=== PATIENT | male | born 1965 | race Caucasian/White ===

== ENCOUNTER 2021-10-05 22:41 | Inpatient (IN) | payer OTHER ==
[2021-10-05] MEDS ORDERED: morphine CARPU-JECT 4 MG/1 ML DISP.SYRIN IVPUSH ONE (23:22)
[2021-10-05] MEDS ORDERED: morphine SULFATE 4 MG/ML VIAL ONE (23:31)
[2021-10-05 23:42] LABS: BASO % 0.8 % (0-2.0); EOS % 2.5 % (0-4.5); HEMATOCRIT 37.7 % (35.4-49); HEMOGLOBIN 13.3 GM/dL (11.7-16.9); LYMPH % 20.5 % (8-40); MCH 35.3 pg (25.7-33.7); MCHC 35.1 g/dl (32.0-35.9); MEAN CELL VOLUME 100.5 fl (80-96); MONO % 7.8 % (3.8-10.2); NEUT % 68.4 % (42.8-82.8); PLATELET COUNT 191 10^3/uL (134-434); RBC 3.75 M/mm3 (4.00-5.60); RDW 12.9 % (11.9-15.9); WHITE BLOOD COUNT 8.6 K/mm3 (4.0-10.0)
[2021-10-05 23:52] LABS: INR 0.88 (0.83-1.09); PROTHROMBIN TIME (PATIENT) 10.3 SEC (9.7-13.0)
[2021-10-05 23:55] LABS: ACTIVATED PTT 32.1 SECONDS (25.2-36.5)
[2021-10-06 00:02] LABS: CHLORIDE 103 mmol/L (98-107); SODIUM 135 mmol/L (136-145)
[2021-10-06 00:04] LABS: CALCIUM 8.2 mg/dL (8.5-10.1); GLUCOSE,RANDOM 93 mg/dL (74-106)
[2021-10-06 00:05] LABS: ALBUMIN 2.9 g/dl (3.4-5.0); ANION GAP 11 MMOL/L (8-16); BLOOD UREA NITROGEN 7.4 mg/dL (7-18); CO2 22 mmol/L (21-32)
[2021-10-06 00:08] LABS: CREATININE 0.7 mg/dL (0.55-1.3); SGOT/AST 38 U/L (15-37); SGPT/ALT 27 U/L (13-61)
[2021-10-06 00:10] LABS: BILIRUBIN,TOTAL 0.4 mg/dL (0.2-1); TOT PROT 6.4 g/dl (6.4-8.2)
[2021-10-06 00:11] LABS: ALK PHOS 177 U/L (45-117)
[2021-10-06] MEDS ORDERED: ACETAMINOPHEN 1000 MG/100 ML VIAL IVPB PRN ×2 (01:47→16:04)
[2021-10-06] MEDS ORDERED: SODIUM CHLORIDE 1,000 ML IV SCH (02:15)
[2021-10-06] MEDS ORDERED: diazePAM CARPU-JECT 10 MG/2 ML DISP.SYRIN IVPUSH PRN (02:29)
[2021-10-06] MEDS ORDERED: LORazepam 2 MG/ML SDV VIAL IVPUSH PRN ×2 (02:30→16:04)
[2021-10-06] MEDS ORDERED: LORazepam 2 MG/ML SDV VIAL ONE (03:13)
[2021-10-06] MEDS ORDERED: NICOTINE 21 MG/24 HOURS TOPICAL PATCH TD SCH (10:00)
[2021-10-06] MEDS ORDERED: LACTATED RINGERS SOLUTION 1,000 ML IV SCH (13:30)
[2021-10-06] MEDS ORDERED: BUPIVACAINE HCL/PF 0.5% (5MG/ML) 10 ML VIAL ONE (14:23)
[2021-10-06] MEDS ORDERED: PROPOFOL 20 ML ONE ×3 (14:34→15:03)
[2021-10-06] MEDS ORDERED: ceFAZolin SODIUM 1 GM VIAL IVPB ONE (15:00)
[2021-10-06] MEDS ORDERED: DEXAMETHASONE SOD PHOSPHATE 4 MG/1 ML VIAL ONE (15:14)
[2021-10-06] MEDS ORDERED: ceFAZolin SODIUM 1 GM VIAL ONE (15:14)
[2021-10-06] MEDS ORDERED: ONDANSETRON 4 MG/2 ML VIAL ONE (15:14)
[2021-10-06] MEDS ORDERED: ONDANSETRON 4 MG/2 ML VIAL IVPUSH PRN (16:00)
[2021-10-06] MEDS: THIAMINE HCL 100 MG TABLET (FP) PO SCH (21:03)
[2021-10-06] MEDS ORDERED: THIAMINE HCL 100 MG TABLET (FP) PO SCH (22:00)
[2021-10-06] MEDS ORDERED: CEFAZOLIN 2 GM in SODIUM CHLORIDE 100 ML IVPB SCH (22:00)
[2021-10-06] MEDS: CEFAZOLIN 2 GM in SODIUM CHLORIDE 100 ML IVPB SCH (23:10)
[2021-10-07] MEDS: CEFAZOLIN 2 GM in SODIUM CHLORIDE 100 ML IVPB SCH (06:10)
[2021-10-07 08:36] LABS: BASO % 0.2 % (0-2.0); HEMATOCRIT 32.2 % (35.4-49); HEMOGLOBIN 11.2 GM/dL (11.7-16.9); LYMPH % 8.2 % (8-40); MCH 35.1 pg (25.7-33.7); MCHC 34.6 g/dl (32.0-35.9); MEAN CELL VOLUME 101.5 fl (80-96); MEAN PLT VOLUME 8.5 fl (7.5-11.1); MONO % 7.2 % (3.8-10.2); NEUT % 84.4 % (42.8-82.8); PLATELET COUNT 172 10^3/uL (134-434); RBC 3.18 M/mm3 (4.00-5.60); RDW 12.4 % (11.9-15.9); WHITE BLOOD COUNT 11.3 K/mm3 (4.0-10.0)
[2021-10-07 08:59] LABS: ALBUMIN 2.5 g/dl (3.4-5.0); CALCIUM 8.4 mg/dL (8.5-10.1)
[2021-10-07 09:00] LABS: BLOOD UREA NITROGEN 8.6 mg/dL (7-18); MAGNESIUM 2.2 mg/dL (1.8-2.4)
[2021-10-07 09:02] LABS: CREATININE 0.6 mg/dL (0.55-1.3); PHOSPHOROUS 2.3 mg/dL (2.5-4.9)
[2021-10-07 09:04] LABS: BILIRUBIN,TOTAL 0.6 mg/dL (0.2-1); TOT PROT 5.9 g/dl (6.4-8.2)
[2021-10-07] MEDS ORDERED: PT OWN MED DRAWER 7, Y5N ONE (09:18)
[2021-10-07] MEDS: MULTIVITAMINS (DAILY MVI) TABLET (FP) PO SCH (09:34)
[2021-10-07] MEDS: FOLIC ACID 1 MG TABLET (FP) PO SCH (09:34)
[2021-10-07] MEDS: ENOXAPARIN NA (PORCINE) 40 MG/0.4 ML DISP.SYRIN SQ SCH (09:34)
[2021-10-07] MEDS: NICOTINE 21 MG/24 HOURS TOPICAL PATCH TD SCH (09:35)
[2021-10-07] MEDS ORDERED: HYDROmorphone HCl 2 MG/ML VIAL IVPB ONE ×2 (09:52→22:00)
[2021-10-07] MEDS ORDERED: MULTIVITAMINS (DAILY MVI) TABLET (FP) PO SCH (10:00)
[2021-10-07] MEDS ORDERED: ENOXAPARIN NA (PORCINE) 40 MG/0.4 ML DISP.SYRIN SQ SCH (10:00)
[2021-10-07] MEDS ORDERED: CHOLECALCIFEROL (VIT D3) 5000 UNITS (125 MCG) CAP PO SCH (10:00)
[2021-10-07] MEDS ORDERED: FOLIC ACID 1 MG TABLET (FP) PO SCH (10:00)
[2021-10-07] MEDS: POLYETHYLENE GLYCOL (HEALTHYLAX) 3350 17 GM PACKET PO SCH ×3 (10:15→22:51)
[2021-10-07] MEDS: DOCUSATE SODIUM 100 MG CAPSULE (FP) PO SCH (21:06)
[2021-10-07] MEDS: THIAMINE HCL 100 MG TABLET (FP) PO SCH (21:07)
[2021-10-07] MEDS ORDERED: ACETAMINOPHEN 1000 MG/100 ML VIAL IVPB ONE (21:29)
[2021-10-08] MEDS ORDERED: HYDROmorphone HCl 2 MG/ML VIAL IVPUSH ONE (05:23)
[2021-10-08 09:07] LABS: BASO % 0.2 % (0-2.0); EOS % 0.4 % (0-4.5); HEMATOCRIT 30.1 % (35.4-49); HEMOGLOBIN 10.5 GM/dL (11.7-16.9); LYMPH % 5.4 % (8-40); MCH 35.3 pg (25.7-33.7); MCHC 34.8 g/dl (32.0-35.9); MEAN CELL VOLUME 101.5 fl (80-96); MEAN PLT VOLUME 8.1 fl (7.5-11.1); MONO % 9.8 % (3.8-10.2); NEUT % 84.2 % (42.8-82.8); PLATELET COUNT 143 10^3/uL (134-434); RBC 2.96 M/mm3 (4.00-5.60); RDW 12.5 % (11.9-15.9); WHITE BLOOD COUNT 6.2 K/mm3 (4.0-10.0)
[2021-10-08] MEDS: MULTIVITAMINS (DAILY MVI) TABLET (FP) PO SCH (09:12)
[2021-10-08] MEDS: oxyCODONE HCL 5 MG TABLET PO PRN ×3 (09:12→21:27)
[2021-10-08] MEDS: FOLIC ACID 1 MG TABLET (FP) PO SCH (09:12)
[2021-10-08] MEDS: NICOTINE 21 MG/24 HOURS TOPICAL PATCH TD SCH (09:13)
[2021-10-08] MEDS: ENOXAPARIN NA (PORCINE) 40 MG/0.4 ML DISP.SYRIN SQ SCH (09:13)
[2021-10-08] MEDS: POLYETHYLENE GLYCOL (HEALTHYLAX) 3350 17 GM PACKET PO SCH ×3 (09:13→21:27)
[2021-10-08 09:36] LABS: CALCIUM 8.3 mg/dL (8.5-10.1)
[2021-10-08 09:37] LABS: ALBUMIN 2.4 g/dl (3.4-5.0); BLOOD UREA NITROGEN 7.4 mg/dL (7-18)
[2021-10-08 09:40] LABS: CREATININE 0.5 mg/dL (0.55-1.3)
[2021-10-08 09:41] LABS: BILIRUBIN,TOTAL 0.7 mg/dL (0.2-1)
[2021-10-08 09:42] LABS: TOT PROT 5.8 g/dl (6.4-8.2)
[2021-10-08] MEDS: ACETAMINOPHEN 325 MG TABLET (FP) PO PRN (13:44)
[2021-10-08] MEDS: THIAMINE HCL 100 MG TABLET (FP) PO SCH (21:27)
[2021-10-08] MEDS: DOCUSATE SODIUM 100 MG CAPSULE (FP) PO SCH (21:28)
[2021-10-09] MEDS: oxyCODONE HCL 5 MG TABLET PO PRN ×3 (03:44→15:48)
[2021-10-09 07:10] LABS: CARCINOEMBRYONIC ANTIGEN 7.3 ng/mL (0.0-4.7)
[2021-10-09] MEDS: ACETAMINOPHEN 325 MG TABLET (FP) PO PRN ×3 (08:52→20:14)
[2021-10-09] MEDS: MULTIVITAMINS (DAILY MVI) TABLET (FP) PO SCH (09:50)
[2021-10-09] MEDS: POLYETHYLENE GLYCOL (HEALTHYLAX) 3350 17 GM PACKET PO SCH ×2 (09:50→21:22)
[2021-10-09] MEDS: FOLIC ACID 1 MG TABLET (FP) PO SCH (09:50)
[2021-10-09] MEDS: NICOTINE 21 MG/24 HOURS TOPICAL PATCH TD SCH (09:50)
[2021-10-09] MEDS: ENOXAPARIN NA (PORCINE) 40 MG/0.4 ML DISP.SYRIN SQ SCH (09:50)
[2021-10-09 10:32] LABS: HEMOGLOBIN 10.6 GM/dL (11.7-16.9); MCH 35.5 pg (25.7-33.7); MCHC 35.2 g/dl (32.0-35.9); MEAN CELL VOLUME 100.7 fl (80-96); PLATELET COUNT 144 10^3/uL (134-434); RBC 2.98 M/mm3 (4.00-5.60); RDW 12.5 % (11.9-15.9); WHITE BLOOD COUNT 7.6 K/mm3 (4.0-10.0)
[2021-10-09 10:59] LABS: CALCIUM 8.1 mg/dL (8.5-10.1)
[2021-10-09 11:00] LABS: ALBUMIN 2.2 g/dl (3.4-5.0); BLOOD UREA NITROGEN 11.4 mg/dL (7-18); MAGNESIUM 2.1 mg/dL (1.8-2.4)
[2021-10-09 11:03] LABS: CREATININE 0.6 mg/dL (0.55-1.3)
[2021-10-09 11:04] LABS: TOT PROT 5.6 g/dl (6.4-8.2)
[2021-10-09 11:05] LABS: BILIRUBIN,TOTAL 0.6 mg/dL (0.2-1)
[2021-10-09 11:45] LABS: ANISOCYTOSIS 1+; MACROCYTOSIS 1+; PLATELET ESTIMATE DECREASED
[2021-10-09] MEDS: DOCUSATE SODIUM 100 MG CAPSULE (FP) PO SCH (21:22)
[2021-10-09] MEDS: THIAMINE HCL 100 MG TABLET (FP) PO SCH (21:22)
[2021-10-09] MEDS ORDERED: POTASSIUM CHLORIDE TABS 20 MEQ TABLET.ER (FP) PO ONE (23:52)
[2021-10-10] MEDS: ACETAMINOPHEN 325 MG TABLET (FP) PO PRN ×2 (02:11→13:43)
[2021-10-10] MEDS: oxyCODONE HCL 5 MG TABLET PO PRN ×4 (03:42→20:09)
[2021-10-10 08:46] LABS: BLOOD UREA NITROGEN 10.9 mg/dL (7-18)
[2021-10-10 08:48] LABS: CREATININE 0.5 mg/dL (0.55-1.3)
[2021-10-10] MEDS: MULTIVITAMINS (DAILY MVI) TABLET (FP) PO SCH (09:39)
[2021-10-10] MEDS: POLYETHYLENE GLYCOL (HEALTHYLAX) 3350 17 GM PACKET PO SCH ×2 (09:39→21:17)
[2021-10-10] MEDS: ENOXAPARIN NA (PORCINE) 40 MG/0.4 ML DISP.SYRIN SQ SCH (09:39)
[2021-10-10] MEDS: FOLIC ACID 1 MG TABLET (FP) PO SCH (09:39)
[2021-10-10] MEDS: NICOTINE 21 MG/24 HOURS TOPICAL PATCH TD SCH (09:39)
[2021-10-10] MEDS: DOCUSATE SODIUM 100 MG CAPSULE (FP) PO SCH (21:16)
[2021-10-10] MEDS: THIAMINE HCL 100 MG TABLET (FP) PO SCH (21:17)
[2021-10-11] MEDS: oxyCODONE HCL 5 MG TABLET PO PRN ×5 (00:49→21:30)
[2021-10-11] MEDS: NICOTINE 21 MG/24 HOURS TOPICAL PATCH TD SCH (09:32)
[2021-10-11] MEDS: FOLIC ACID 1 MG TABLET (FP) PO SCH (09:32)
[2021-10-11] MEDS: ENOXAPARIN NA (PORCINE) 40 MG/0.4 ML DISP.SYRIN SQ SCH (09:32)
[2021-10-11] MEDS: MULTIVITAMINS (DAILY MVI) TABLET (FP) PO SCH (09:32)
[2021-10-11] MEDS: POLYETHYLENE GLYCOL (HEALTHYLAX) 3350 17 GM PACKET PO SCH ×2 (09:32→21:31)
[2021-10-11] MEDS: ACETAMINOPHEN 325 MG TABLET (FP) PO PRN (09:39)
[2021-10-11] MEDS: DOCUSATE SODIUM 100 MG CAPSULE (FP) PO SCH (21:31)
[2021-10-11] MEDS: THIAMINE HCL 100 MG TABLET (FP) PO SCH (21:31)
[2021-10-12] MEDS: oxyCODONE HCL 5 MG TABLET PO PRN ×6 (02:26→22:00)
[2021-10-12] MEDS: FOLIC ACID 1 MG TABLET (FP) PO SCH (09:42)
[2021-10-12] MEDS: NICOTINE 21 MG/24 HOURS TOPICAL PATCH TD SCH (09:42)
[2021-10-12] MEDS: ENOXAPARIN NA (PORCINE) 40 MG/0.4 ML DISP.SYRIN SQ SCH (09:42)
[2021-10-12] MEDS: MULTIVITAMINS (DAILY MVI) TABLET (FP) PO SCH (09:42)
[2021-10-12] MEDS: POLYETHYLENE GLYCOL (HEALTHYLAX) 3350 17 GM PACKET PO SCH ×2 (09:42→22:14)
[2021-10-12 09:59] LABS: CALCIUM 8.3 mg/dL (8.5-10.1)
[2021-10-12 10:00] LABS: BLOOD UREA NITROGEN 11.5 mg/dL (7-18); MAGNESIUM 2.2 mg/dL (1.8-2.4)
[2021-10-12 10:03] LABS: CREATININE 0.4 mg/dL (0.55-1.3)
[2021-10-12 10:41] LABS: BASO % 0.3 % (0-2.0); EOS % 1.2 % (0-4.5); HEMATOCRIT 28.5 % (35.4-49); LYMPH % 8.7 % (8-40); MCH 35.3 pg (25.7-33.7); MCHC 35.1 g/dl (32.0-35.9); MEAN CELL VOLUME 100.6 fl (80-96); MEAN PLT VOLUME 8.9 fl (7.5-11.1); MONO % 10.1 % (3.8-10.2); NEUT % 79.7 % (42.8-82.8); PLATELET COUNT 201 10^3/uL (134-434); RBC 2.83 M/mm3 (4.00-5.60); RDW 12.7 % (11.9-15.9); WHITE BLOOD COUNT 9.1 K/mm3 (4.0-10.0)
[2021-10-12] MEDS ORDERED: DEXAMETHASONE 4 MG TABLET (FP) PO SCH (11:15)
[2021-10-12] MEDS: ASCORBIC ACID 500 MG TABLET (FP) PO SCH (12:30)
[2021-10-12] MEDS: ZINC SULFATE 220 MG CAPSULE (FP) PO SCH (12:30)
[2021-10-12] MEDS ORDERED: REMDESIVIR 200 MG in SODIUM CHLORIDE 250 ML IVPB ONE (13:00)
[2021-10-12] MEDS: DEXAMETHASONE SOD PHOSPHATE 10 MG/1 ML VIAL IVPUSH SCH (13:23)
[2021-10-12] MEDS: DOCUSATE SODIUM 100 MG CAPSULE (FP) PO SCH (22:15)
[2021-10-12] MEDS: THIAMINE HCL 100 MG TABLET (FP) PO SCH (22:15)
[2021-10-13] MEDS: oxyCODONE HCL 5 MG TABLET PO PRN ×3 (03:40→21:52)
[2021-10-13 08:57] LABS: BASO % 0.2 % (0-2.0); HEMATOCRIT 27.4 % (35.4-49); HEMOGLOBIN 9.7 GM/dL (11.7-16.9); LYMPH % 6.9 % (8-40); MCH 35.1 pg (25.7-33.7); MCHC 35.6 g/dl (32.0-35.9); MEAN CELL VOLUME 98.6 fl (80-96); MEAN PLT VOLUME 8.8 fl (7.5-11.1); MONO % 12.2 % (3.8-10.2); NEUT % 80.7 % (42.8-82.8); PLATELET COUNT 249 10^3/uL (134-434); RBC 2.77 M/mm3 (4.00-5.60); RDW 12.6 % (11.9-15.9); WHITE BLOOD COUNT 7.3 K/mm3 (4.0-10.0)
[2021-10-13 09:00] LABS: CALCIUM 8.4 mg/dL (8.5-10.1)
[2021-10-13 09:01] LABS: BLOOD UREA NITROGEN 13.7 mg/dL (7-18); MAGNESIUM 2.3 mg/dL (1.8-2.4)
[2021-10-13 09:04] LABS: CREATININE 0.4 mg/dL (0.55-1.3)
[2021-10-13 09:05] LABS: BILIRUBIN,TOTAL 0.8 mg/dL (0.2-1); TOT PROT 5.9 g/dl (6.4-8.2)
[2021-10-13] MEDS: NICOTINE 21 MG/24 HOURS TOPICAL PATCH TD SCH (09:17)
[2021-10-13] MEDS: ZINC SULFATE 220 MG CAPSULE (FP) PO SCH (09:17)
[2021-10-13] MEDS: POLYETHYLENE GLYCOL (HEALTHYLAX) 3350 17 GM PACKET PO SCH ×2 (09:17→21:44)
[2021-10-13] MEDS: ASCORBIC ACID 500 MG TABLET (FP) PO SCH (09:17)
[2021-10-13] MEDS: MULTIVITAMINS (DAILY MVI) TABLET (FP) PO SCH (09:17)
[2021-10-13] MEDS: ENOXAPARIN NA (PORCINE) 40 MG/0.4 ML DISP.SYRIN SQ SCH (09:18)
[2021-10-13] MEDS: FOLIC ACID 1 MG TABLET (FP) PO SCH (09:18)
[2021-10-13] MEDS: DEXAMETHASONE SOD PHOSPHATE 10 MG/1 ML VIAL IVPUSH SCH (09:18)
[2021-10-13] MEDS ORDERED: LORazepam 1 MG TABLET PO PRN (09:52)
[2021-10-13] MEDS: REMDESIVIR 100 MG in SODIUM CHLORIDE 250 ML IVPB SCH (12:03)
[2021-10-13] MEDS: THIAMINE HCL 100 MG TABLET (FP) PO SCH (21:44)
[2021-10-13] MEDS: DOCUSATE SODIUM 100 MG CAPSULE (FP) PO SCH (21:44)
[2021-10-14] MEDS: oxyCODONE HCL 5 MG TABLET PO PRN ×4 (04:04→19:53)
[2021-10-14 08:59] LABS: BASO % 0.3 % (0-2.0); HEMATOCRIT 29.6 % (35.4-49); HEMOGLOBIN 10.3 GM/dL (11.7-16.9); LYMPH % 12.5 % (8-40); MCH 34.4 pg (25.7-33.7); MCHC 34.8 g/dl (32.0-35.9); MEAN CELL VOLUME 98.9 fl (80-96); MONO % 10.6 % (3.8-10.2); NEUT % 76.6 % (42.8-82.8); PLATELET COUNT 397 10^3/uL (134-434); RBC 2.99 M/mm3 (4.00-5.60); RDW 12.4 % (11.9-15.9); WHITE BLOOD COUNT 10.1 K/mm3 (4.0-10.0)
[2021-10-14 09:16] LABS: ALBUMIN 2.3 g/dl (3.4-5.0); BLOOD UREA NITROGEN 14.3 mg/dL (7-18); CALCIUM 8.5 mg/dL (8.5-10.1); MAGNESIUM 2.2 mg/dL (1.8-2.4)
[2021-10-14 09:19] LABS: CREATININE 0.5 mg/dL (0.55-1.3)
[2021-10-14 09:21] LABS: TOT PROT 6.3 g/dl (6.4-8.2)
[2021-10-14] MEDS: NICOTINE 21 MG/24 HOURS TOPICAL PATCH TD SCH (09:33)
[2021-10-14] MEDS: ZINC SULFATE 220 MG CAPSULE (FP) PO SCH (09:33)
[2021-10-14] MEDS: ASCORBIC ACID 500 MG TABLET (FP) PO SCH (09:33)
[2021-10-14] MEDS: DEXAMETHASONE SOD PHOSPHATE 10 MG/1 ML VIAL IVPUSH SCH (09:33)
[2021-10-14] MEDS: FOLIC ACID 1 MG TABLET (FP) PO SCH (09:33)
[2021-10-14] MEDS: MULTIVITAMINS (DAILY MVI) TABLET (FP) PO SCH (09:33)
[2021-10-14] MEDS: POLYETHYLENE GLYCOL (HEALTHYLAX) 3350 17 GM PACKET PO SCH ×3 (09:33→21:55)
[2021-10-14] MEDS ORDERED: LORazepam 0.5 MG TABLET PO PRN (10:03)
[2021-10-14] MEDS ORDERED: BISACODYL 10 MG SUPP.RECT PR ONE (10:15)
[2021-10-14] MEDS: REMDESIVIR 100 MG in SODIUM CHLORIDE 250 ML IVPB SCH (13:22)
[2021-10-14] MEDS: DOCUSATE SODIUM 100 MG CAPSULE (FP) PO SCH (21:50)
[2021-10-14] MEDS: THIAMINE HCL 100 MG TABLET (FP) PO SCH (21:50)
[2021-10-15] MEDS: oxyCODONE HCL 5 MG TABLET PO PRN ×5 (00:27→20:02)
[2021-10-15] MEDS: POLYETHYLENE GLYCOL (HEALTHYLAX) 3350 17 GM PACKET PO SCH ×2 (10:29→21:27)
[2021-10-15] MEDS: MULTIVITAMINS (DAILY MVI) TABLET (FP) PO SCH (10:29)
[2021-10-15] MEDS: DEXAMETHASONE SOD PHOSPHATE 10 MG/1 ML VIAL IVPUSH SCH (10:29)
[2021-10-15] MEDS: FOLIC ACID 1 MG TABLET (FP) PO SCH (10:31)
[2021-10-15] MEDS: ASCORBIC ACID 500 MG TABLET (FP) PO SCH (10:34)
[2021-10-15] MEDS: ZINC SULFATE 220 MG CAPSULE (FP) PO SCH (10:38)
[2021-10-15] MEDS: NICOTINE 21 MG/24 HOURS TOPICAL PATCH TD SCH (10:38)
[2021-10-15] MEDS: REMDESIVIR 100 MG in SODIUM CHLORIDE 250 ML IVPB SCH (12:36)
[2021-10-15] MEDS: THIAMINE HCL 100 MG TABLET (FP) PO SCH (21:26)
[2021-10-15] MEDS: DOCUSATE SODIUM 100 MG CAPSULE (FP) PO SCH (21:27)
[2021-10-16] MEDS: oxyCODONE HCL 5 MG TABLET PO PRN ×6 (00:17→21:52)
[2021-10-16] MEDS: NICOTINE 21 MG/24 HOURS TOPICAL PATCH TD SCH (09:01)
[2021-10-16] MEDS: MULTIVITAMINS (DAILY MVI) TABLET (FP) PO SCH (09:01)
[2021-10-16] MEDS: ASCORBIC ACID 500 MG TABLET (FP) PO SCH (09:01)
[2021-10-16] MEDS: ZINC SULFATE 220 MG CAPSULE (FP) PO SCH (09:01)
[2021-10-16] MEDS: POLYETHYLENE GLYCOL (HEALTHYLAX) 3350 17 GM PACKET PO SCH ×2 (09:02→21:52)
[2021-10-16] MEDS: FOLIC ACID 1 MG TABLET (FP) PO SCH (09:03)
[2021-10-16] MEDS: DEXAMETHASONE SOD PHOSPHATE 10 MG/1 ML VIAL IVPUSH SCH (09:03)
[2021-10-16 12:50] LABS: HEMATOCRIT 30.1 % (35.4-49); HEMOGLOBIN 10.7 GM/dL (11.7-16.9); MCH 34.5 pg (25.7-33.7); MCHC 35.5 g/dl (32.0-35.9); MEAN CELL VOLUME 97.3 fl (80-96); MEAN PLT VOLUME 7.4 fl (7.5-11.1); PLATELET COUNT 626 10^3/uL (134-434); RBC 3.09 M/mm3 (4.00-5.60); RDW 12.8 % (11.9-15.9); WHITE BLOOD COUNT 13.8 K/mm3 (4.0-10.0)
[2021-10-16] MEDS: REMDESIVIR 100 MG in SODIUM CHLORIDE 250 ML IVPB SCH (13:03)
[2021-10-16 13:13] LABS: ALBUMIN 2.3 g/dl (3.4-5.0); CALCIUM 8.7 mg/dL (8.5-10.1); MAGNESIUM 2.2 mg/dL (1.8-2.4)
[2021-10-16 13:16] LABS: CREATININE 0.6 mg/dL (0.55-1.3)
[2021-10-16 13:18] LABS: BILIRUBIN,TOTAL 0.5 mg/dL (0.2-1)
[2021-10-16 13:29] LABS: ANISOCYTOSIS 1+; MACROCYTOSIS 0; PLATELET ESTIMATE INCREASED
[2021-10-16] MEDS: DOCUSATE SODIUM 100 MG CAPSULE (FP) PO SCH (21:52)
[2021-10-16] MEDS: THIAMINE HCL 100 MG TABLET (FP) PO SCH (21:52)
[2021-10-17] MEDS: oxyCODONE HCL 5 MG TABLET PO PRN ×5 (02:34→20:07)
[2021-10-17] MEDS: ASCORBIC ACID 500 MG TABLET (FP) PO SCH (09:08)
[2021-10-17] MEDS: FOLIC ACID 1 MG TABLET (FP) PO SCH (09:08)
[2021-10-17] MEDS: ZINC SULFATE 220 MG CAPSULE (FP) PO SCH (09:08)
[2021-10-17] MEDS: POLYETHYLENE GLYCOL (HEALTHYLAX) 3350 17 GM PACKET PO SCH ×2 (09:08→21:59)
[2021-10-17] MEDS: MULTIVITAMINS (DAILY MVI) TABLET (FP) PO SCH (09:08)
[2021-10-17] MEDS: DEXAMETHASONE SOD PHOSPHATE 10 MG/1 ML VIAL IVPUSH SCH (09:08)
[2021-10-17] MEDS: NICOTINE 21 MG/24 HOURS TOPICAL PATCH TD SCH (09:08)
[2021-10-17 13:18] LABS: HEMATOCRIT 29.9 % (35.4-49); HEMOGLOBIN 10.5 GM/dL (11.7-16.9); MCH 34.2 pg (25.7-33.7); MEAN CELL VOLUME 97.8 fl (80-96); MEAN PLT VOLUME 6.8 fl (7.5-11.1); PLATELET COUNT 681 10^3/uL (134-434); RBC 3.06 M/mm3 (4.00-5.60); WHITE BLOOD COUNT 15.9 K/mm3 (4.0-10.0)
[2021-10-17 13:44] LABS: BLOOD UREA NITROGEN 17.3 mg/dL (7-18); CALCIUM 8.5 mg/dL (8.5-10.1)
[2021-10-17 13:45] LABS: ALBUMIN 2.3 g/dl (3.4-5.0); MAGNESIUM 2.1 mg/dL (1.8-2.4)
[2021-10-17 13:48] LABS: CREATININE 0.7 mg/dL (0.55-1.3)
[2021-10-17 13:49] LABS: BILIRUBIN,TOTAL 0.8 mg/dL (0.2-1); TOT PROT 5.9 g/dl (6.4-8.2)
[2021-10-17 14:10] LABS: ANISOCYTOSIS 2+; MACROCYTOSIS 1+; PLATELET ESTIMATE INCREASED; TEAR DROP CELLS 1+
[2021-10-17] MEDS: DOCUSATE SODIUM 100 MG CAPSULE (FP) PO SCH (21:59)
[2021-10-17] MEDS: THIAMINE HCL 100 MG TABLET (FP) PO SCH (21:59)
[2021-10-18] MEDS: oxyCODONE HCL 5 MG TABLET PO PRN ×5 (01:16→20:38)
[2021-10-18] MEDS: NICOTINE 21 MG/24 HOURS TOPICAL PATCH TD SCH (09:45)
[2021-10-18] MEDS: ASCORBIC ACID 500 MG TABLET (FP) PO SCH (09:46)
[2021-10-18] MEDS: POLYETHYLENE GLYCOL (HEALTHYLAX) 3350 17 GM PACKET PO SCH ×2 (09:46→21:06)
[2021-10-18] MEDS: ZINC SULFATE 220 MG CAPSULE (FP) PO SCH (09:46)
[2021-10-18] MEDS: FOLIC ACID 1 MG TABLET (FP) PO SCH (09:46)
[2021-10-18] MEDS: MULTIVITAMINS (DAILY MVI) TABLET (FP) PO SCH (09:47)
[2021-10-18] MEDS: DEXAMETHASONE SOD PHOSPHATE 10 MG/1 ML VIAL IVPUSH SCH (09:47)
[2021-10-18] MEDS: DOCUSATE SODIUM 100 MG CAPSULE (FP) PO SCH (21:05)
[2021-10-18] MEDS: THIAMINE HCL 100 MG TABLET (FP) PO SCH (21:05)
[2021-10-19] MEDS: oxyCODONE HCL 5 MG TABLET PO PRN ×3 (01:50→10:24)
[2021-10-19 09:45] LABS: BASO % 0.3 % (0-2.0); EOS % 0.5 % (0-4.5); HEMATOCRIT 30.5 % (35.4-49); HEMOGLOBIN 10.4 GM/dL (11.7-16.9); LYMPH % 14.4 % (8-40); MCH 33.6 pg (25.7-33.7); MEAN PLT VOLUME 7.1 fl (7.5-11.1); MONO % 8.6 % (3.8-10.2); NEUT % 76.2 % (42.8-82.8); PLATELET COUNT 701 10^3/uL (134-434); RBC 3.08 M/mm3 (4.00-5.60); RDW 13.3 % (11.9-15.9); WHITE BLOOD COUNT 14.9 K/mm3 (4.0-10.0)
[2021-10-19 09:57] LABS: CALCIUM 8.1 mg/dL (8.5-10.1)
[2021-10-19 09:58] LABS: ALBUMIN 2.3 g/dl (3.4-5.0); BLOOD UREA NITROGEN 14.7 mg/dL (7-18); MAGNESIUM 2.1 mg/dL (1.8-2.4)
[2021-10-19 10:01] LABS: CREATININE 0.5 mg/dL (0.55-1.3)
[2021-10-19 10:02] LABS: BILIRUBIN,TOTAL 0.4 mg/dL (0.2-1); TOT PROT 5.7 g/dl (6.4-8.2)
[2021-10-19] MEDS: POLYETHYLENE GLYCOL (HEALTHYLAX) 3350 17 GM PACKET PO SCH (10:16)
[2021-10-19] MEDS: MULTIVITAMINS (DAILY MVI) TABLET (FP) PO SCH (10:16)
[2021-10-19] MEDS: NICOTINE 21 MG/24 HOURS TOPICAL PATCH TD SCH (10:16)
[2021-10-19] MEDS: FOLIC ACID 1 MG TABLET (FP) PO SCH (10:17)
[2021-10-19] MEDS: ZINC SULFATE 220 MG CAPSULE (FP) PO SCH (10:17)
[2021-10-19] MEDS: ASCORBIC ACID 500 MG TABLET (FP) PO SCH (10:17)
[2021-10-19 12:40] LABS: ANISOCYTOSIS 1+; MACROCYTOSIS 1+; PLATELET ESTIMATE INCREASED
[2021-10-19 14:29] VITALS: BP 120/68; PULSE 76; TEMP 97.8
== END 2021-10-19 15:47 | DRG 340 ==
LOC: JER 22:41 → JERBED 10-06 01:02 → J6S 10-06 20:02
PROVIDERS: ATTEND Nurse Practitioner Family
PROC: 0SSB34Z Reposition Left Hip Joint with Internal Fixation Device, Percutaneous Approach (ICD-10-PCS; principal; 2021-10-06 15:30)
PROC: XW033E5 Introduction of Remdesivir Anti-infective into Peripheral Vein, Percutaneous Approach, New Technology Group 5 (ICD-10-PCS; 2021-10-11)
DX: S72.142A Displaced intertrochanteric fracture of left femur, initial encounter for closed fracture (principal); J12.82 Pneumonia due to coronavirus disease 2019; U07.1 COVID-19; E55.9 Vitamin D deficiency, unspecified; F10.10 Alcohol abuse, uncomplicated; F12.90 Cannabis use, unspecified, uncomplicated; F17.210 Nicotine dependence, cigarettes, uncomplicated; I44.7 Left bundle-branch block, unspecified; J98.11 Atelectasis; R01.1 Cardiac murmur, unspecified; W19.XXXA Unspecified fall, initial encounter; Y93.9 Activity, unspecified; Y92.89 Other specified places as the place of occurrence of the external cause; Y99.9 Unspecified external cause status
CPT/HCPCS: 36415; 70450-TC; 71045-TC-FY; 72125-TC; 72170-TC-FY; 73552-TC-LT-FY; 76000-TC-FY; 80048; 80053; 80307; 82306; 82378; 82607; 82728; 83735; 83970; 84100; 84153; 84484; 85025; 85379; 85610; 85730; 86140; 86301; 86850; 86900; 86901; 87040; 87086; 93005; 93010; 93306-TC; 94760; 94761; 97116-GP; 97162-GP; 99285-25; C9399; C9803; J0131; J1100; U0003; U0005

== ENCOUNTER 2022-12-26 11:38 | Emergency (ER) | payer OTHER ==
[2022-12-26 11:58] VITALS: TEMP 97.9; BMI 35.2
[2022-12-26] MEDS ORDERED: ACETAMINOPHEN 500 MG TABLET (FP) PO ONE (12:32)
[2022-12-26] MEDS ORDERED: ACETAMINOPHEN 325 MG TABLET (FP) ONE (12:38)
[2022-12-26] MEDS ORDERED: oxyCODONE HCL 5 MG TABLET PO ONE (13:37)
[2022-12-26] MEDS ORDERED: oxyCODONE HCL 5 MG TABLET ONE (13:52)
[2022-12-26 14:01] VITALS: RESP 18
[2022-12-26] MEDS ORDERED: KETOROLAC TROMETHAMINE 30 MG/1 ML VIAL IM ONE (15:50)
[2022-12-26] MEDS ORDERED: KETOROLAC TROMETHAMINE 30 MG/1 ML VIAL ONE (16:06)
[2022-12-26 18:29] VITALS: BP 144/78; PULSE 85
== END 2022-12-26 18:31 | disposition home or self-care (01) ==
LOC: JER 11:38
PROC: 3E023GC Introduction of Other Therapeutic Substance into Muscle, Percutaneous Approach (ICD-10-PCS; principal; 2022-12-26)
DX: S89.92XA Unspecified injury of left lower leg, initial encounter (principal); W01.0XXA Fall on same level from slipping, tripping and stumbling without subsequent striking against object, initial encounter
CPT/HCPCS: 73502-TC-LT-FY; 73552-TC-LT-FY; 73562-TC-LT-FY; 73610-TC-LT-FY; 73700-TC-RT; 96372; 99284-25

== ENCOUNTER 2024-05-19 10:48 | Observation (INO) | payer OTHER ==
[2024-05-19 11:29] VITALS: BMI 24.4
[2024-05-19] MEDS ORDERED: ACETAMINOPHEN 500 MG TABLET (FP) ONE (11:46)
[2024-05-19] MEDS: ACETAMINOPHEN 500 MG TABLET (FP) PO ONE (12:00)
[2024-05-19 12:04] LABS: BASO % 0.8 % (0-2.0); EOS % 0.8 % (0-4.5); HEMATOCRIT 35.9 % (35.4-49); HEMOGLOBIN 12.7 GM/dL (11.7-16.9); LYMPH % 7.1 % (8-40); MCH 35.7 pg (25.7-33.7); MCHC 35.3 g/dl (32.0-35.9); MEAN PLT VOLUME 6.9 fl (7.5-11.1); MONO % 7.7 % (3.8-10.2); NEUT % 83.6 % (42.8-82.8); PLATELET COUNT 216 10^3/uL (134-434); RBC 3.56 M/mm3 (4.00-5.60); RDW 13.2 % (11.9-15.9); WHITE BLOOD COUNT 6.1 K/mm3 (4.0-10.0)
[2024-05-19 12:09] LABS: INR 0.88 (0.83-1.09); PROTHROMBIN TIME (PATIENT) 10.2 SEC (9.7-13.0)
[2024-05-19 12:22] LABS: POTASSIUM 3.9 mmol/L (3.5-5.1)
[2024-05-19 12:24] LABS: BLOOD UREA NITROGEN 6.8 mg/dL (7-18); CALCIUM 8.7 mg/dL (8.5-10.1)
[2024-05-19 12:29] LABS: CREATININE 0.7 mg/dL (0.55-1.3)
[2024-05-19] MEDS ORDERED: morphine SULFATE 4 MG/ML VIAL ONE (13:56)
[2024-05-19] MEDS: morphine CARPU-JECT 4 MG/1 ML DISP.SYRIN IVPUSH ONE (14:09)
[2024-05-19] MEDS ORDERED: NICOTINE 14 MG/24 HOURS TOPICAL PATCH TD ONE (18:51)
[2024-05-19] MEDS ORDERED: LIDOCAINE 4% PATCH TP ONE (18:51)
[2024-05-19] MEDS: NICOTINE 14 MG/24 HOURS TOPICAL PATCH TD SCH (18:59)
[2024-05-19] MEDS: LIDOCAINE 4% PATCH TP SCH (18:59)
[2024-05-19] MEDS: SODIUM CHLORIDE 1,000 ML IV SCH (19:26)
[2024-05-19] MEDS: LIDOCAINE PATCH REMOVAL MC SCH (21:16)
[2024-05-20] MEDS: ACETAMINOPHEN 1000 MG/100 ML BAG IVPB PRN (02:02)
[2024-05-20 07:22] LABS: BASO % 0.6 % (0-2.0); EOS % 2.6 % (0-4.5); HEMATOCRIT 35.8 % (35.4-49); HEMOGLOBIN 12.7 GM/dL (11.7-16.9); LYMPH % 10.2 % (8-40); MCH 36.2 pg (25.7-33.7); MCHC 35.3 g/dl (32.0-35.9); MEAN CELL VOLUME 102.5 fl (80-96); MEAN PLT VOLUME 7.3 fl (7.5-11.1); MONO % 7.6 % (3.8-10.2); PLATELET COUNT 203 10^3/uL (134-434); POTASSIUM 4.1 mmol/L (3.5-5.1); RDW 13.4 % (11.9-15.9); WHITE BLOOD COUNT 4.8 K/mm3 (4.0-10.0)
[2024-05-20 07:24] LABS: CALCIUM 8.6 mg/dL (8.5-10.1)
[2024-05-20 07:25] LABS: ALBUMIN 3.6 g/dl (3.4-5.0); BLOOD UREA NITROGEN 7.1 mg/dL (7-18)
[2024-05-20 07:28] LABS: CREATININE 0.5 mg/dL (0.55-1.3)
[2024-05-20 07:30] LABS: TOT PROT 6.5 g/dl (6.4-8.2)
[2024-05-20] MEDS ORDERED: NICOTINE 14 MG/24 HOURS TOPICAL PATCH TD ONE (08:59)
[2024-05-20] MEDS ORDERED: LIDOCAINE 4% PATCH TP ONE (09:00)
[2024-05-20] MEDS ORDERED: ACETAMINOPHEN INJECTION 100 ML IVPB ONE (09:35)
[2024-05-20] MEDS ORDERED: THIAMINE 100 MG TABLET ONE (14:54)
[2024-05-20] MEDS ORDERED: FOLIC ACID 1 MG TABLET (FP) ONE (14:54)
[2024-05-20] MEDS ORDERED: TAMSULOSIN HCL 0.4 MG CAP ONE (14:54)
[2024-05-20] MEDS ORDERED: amLODIPine BESYLATE 5 MG TABLET (FP) ONE (14:54)
[2024-05-20] MEDS: amLODIPine BESYLATE 5 MG TABLET (FP) PO SCH (14:59)
[2024-05-20] MEDS: THIAMINE 100 MG TABLET PO SCH (14:59)
[2024-05-20] MEDS: FOLIC ACID 1 MG TABLET (FP) PO SCH (14:59)
[2024-05-20] MEDS: TAMSULOSIN HCL 0.4 MG CAP PO SCH (14:59)
[2024-05-21 09:28] LABS: BASO % 0.7 % (0-2.0); EOS % 3.1 % (0-4.5); HEMATOCRIT 34.2 % (35.4-49); HEMOGLOBIN 12.2 GM/dL (11.7-16.9); MCH 36.3 pg (25.7-33.7); MCHC 35.7 g/dl (32.0-35.9); MEAN CELL VOLUME 101.6 fl (80-96); MEAN PLT VOLUME 7.5 fl (7.5-11.1); MONO % 8.3 % (3.8-10.2); NEUT % 77.9 % (42.8-82.8); PLATELET COUNT 212 10^3/uL (134-434); RBC 3.36 M/mm3 (4.00-5.60); RDW 13.6 % (11.9-15.9); WHITE BLOOD COUNT 5.5 K/mm3 (4.0-10.0)
[2024-05-21 09:45] LABS: POTASSIUM 3.8 mmol/L (3.5-5.1)
[2024-05-21 09:48] LABS: CALCIUM 8.7 mg/dL (8.5-10.1)
[2024-05-21 09:49] LABS: ALBUMIN 3.4 g/dl (3.4-5.0); BLOOD UREA NITROGEN 7.7 mg/dL (7-18); MAGNESIUM 2.1 mg/dL (1.8-2.4)
[2024-05-21 09:52] LABS: CREATININE 0.6 mg/dL (0.55-1.3); PHOSPHOROUS 3.7 mg/dL (2.5-4.9)
[2024-05-21 09:54] LABS: BILIRUBIN,TOTAL 0.6 mg/dL (0.2-1); TOT PROT 6.4 g/dl (6.4-8.2)
[2024-05-21] MEDS ORDERED: ENZALUTAMIDE 40 MG PO SCH (10:00)
[2024-05-21 11:01] VITALS: BP 165/80; PULSE 69; RESP 18; TEMP 98
[2024-05-21] MEDS: ENOXAPARIN NA (PORCINE) 40 MG/0.4 ML DISP.SYRIN SQ SCH (11:37)
[2024-05-21] MEDS: ACETAMINOPHEN 325 MG TABLET (FP) PO ONE (11:45)
== END 2024-05-21 14:50 | disposition home or self-care (01) ==
LOC: JER 10:48 → JERBED 14:49 → J5S 05-20 19:03
PROVIDERS: ADMIT Internal Medicine Nephrology
PROC: 3E033NZ Introduction of Analgesics, Hypnotics, Sedatives into Peripheral Vein, Percutaneous Approach (ICD-10-PCS; principal; 2024-05-19)
PROC: 3E023GC Introduction of Other Therapeutic Substance into Muscle, Percutaneous Approach (ICD-10-PCS; 2024-05-19)
PROC: 3E033NZ Introduction of Analgesics, Hypnotics, Sedatives into Peripheral Vein, Percutaneous Approach (ICD-10-PCS; 2024-05-19)
PROC: 3E0337Z Introduction of Electrolytic and Water Balance Substance into Peripheral Vein, Percutaneous Approach (ICD-10-PCS; 2024-05-19)
DX: R55 Syncope and collapse (principal); I44.7 Left bundle-branch block, unspecified; E87.1 Hypo-osmolality and hyponatremia; C61 Malignant neoplasm of prostate; W18.39XA Other fall on same level, initial encounter; Y93.89 Activity, other specified; Y92.003 Bedroom of unspecified non-institutional (private) residence as the place of occurrence of the external cause; Z87.891 Personal history of nicotine dependence
CPT/HCPCS: 36415; 70450-TC; 71275-TC; 73060-TC-RT-FY; 73070-TC-RT-FY; 73090-TC-RT-FY; 73562-TC-LT-FY; 73562-TC-RT-FY; 73700-TC-RT; 80048; 80053; 80307; 82746; 83605; 83735; 83930; 84100; 84439; 84443; 84484; 85025; 85610; 86850; 86900; 86901; 93005; 93010; 93880-TC; 96361; 96372; 96374; 96375; 97116-GP; 97161-GP; 99285-25; G0378; J0131; Q9967